=== PATIENT | female | born 1965 | race Caucasian/White ===

== ENCOUNTER 2016-10-11 09:16 | Inpatient (IN) | payer MEDICAID ==
[2016-09-22 08:20] VITALS: BMI 36.7
[2016-09-22 13:24] VITALS: BP_SYST 110; TEMP 98
[2016-10-08 16:34] VITALS: BMI 36.7
[2016-10-08 16:35] VITALS: BP_SYST 110; RESP 20; TEMP 98
[2016-10-11] VITALS (23 sets, daily range): BP systolic 87–129; RESP 16–18; TEMP 97.4–98.5
[~2016-10-11] VITALS: Ht 170.2 cm; Wt 106.3 kg
[~2016-10-11 09:16] MED LIST: CEFAZOLIN 2,000 MG in SODIUM CHLORIDE 0.9% 100 ML IV ONE; ROPIVACAINE 0.5% 139 MG, EPINEPHrine 1:1,000 0.2 MG, KETOROLAC INJ 30 MG, MORPHINE 10 MG SUBQ ONE
[2016-10-11] MEDS ORDERED: BUPIVACA/EPI 0.5% PF 10 ML EPIDURAL ONE (09:54)
[2016-10-11] MEDS ORDERED: LIDOCAINE 1% BUFFERED 1 ML SYR INTRADERM PRN (10:15)
[2016-10-11] MEDS ORDERED: MIDAZOLAM 2 MG/2 ML INJ IV ONE (10:15)
[2016-10-11] MEDS ORDERED: LACT RINGERS 1,000 ML IV SCH ×2 (10:15→13:10)
[2016-10-11] MEDS ORDERED: GLYCOPYRROLATE 0.2 MG/ML VIAL IV ONE ×2 (10:15→14:15)
[2016-10-11] MEDS ORDERED: ONDANSETRON 4 MG VIAL IV ONE (10:20)
[2016-10-11] MEDS ORDERED: SCOPOLAMINE PATCH TRANSDERM ONE (10:20)
[2016-10-11] MEDS ORDERED: MEPERIDINE 25 MG/ML IV PRN (11:45)
[2016-10-11] MEDS ORDERED: DILAUDID 1 MG/ML AMP IV PRN (11:45)
[2016-10-11] MEDS ORDERED: MORPHINE 4 MG/ML SYR IV PRN (11:45)
[2016-10-11] MEDS ORDERED: MORPHINE 2 MG/ML SYR IV PRN ×2 (11:45→13:10)
[2016-10-11] MEDS ORDERED: ONDANSETRON 4 MG VIAL IV PRN ×2 (11:45→13:10)
[2016-10-11] MEDS ORDERED: OXYCODONE 5 MG TAB PO PRN (11:45)
[2016-10-11] MEDS ORDERED: ZOLPIDEM 5 MG TAB PO PRN (13:10)
[2016-10-11] MEDS ORDERED: MAG HYDROX 30 ML UDC PO PRN (13:10)
[2016-10-11] MEDS ORDERED: DEXTROSE 50% SYRINGE 50 ML IV PRN (13:10)
[2016-10-11] MEDS ORDERED: SALINE FLUSH 10 ML FLUSH PRN (13:10)
[2016-10-11] MEDS ORDERED: ONDANSETRON 4 MG TAB PO PRN (13:10)
[2016-10-11] MEDS ORDERED: GLUCAGON 1 MG VIAL IM PRN (13:10)
[2016-10-11] MEDS ORDERED: LIDOCAINE 2% SYR 5 ML IV ONE (14:15)
[2016-10-11] MEDS ORDERED: NEOSTIGMINE 10 MG/10 ML VIAL IV ONE (14:15)
[2016-10-11] MEDS ORDERED: METOPROLOL 5 MG/5 ML VIAL IV ONE (14:15)
[2016-10-11] MEDS ORDERED: BACITRACIN 50,000 UNITS INJ IRRIG ONE (14:15)
[2016-10-11] MEDS ORDERED: PROPOFOL 20 ML VIAL IV ONE (14:15)
[2016-10-11] MEDS ORDERED: ROCURONIUM 50 MG VIAL IV ONE (14:15)
[2016-10-11] MEDS ORDERED: FENTANYL 100 MCG/2 ML AMP IV ONE (14:15)
[2016-10-11] MEDS ORDERED: DUONEB INH ONE (16:30)
[2016-10-11] MEDS: CEFAZOLIN 2,000 MG in SODIUM CHLORIDE 0.9% 100 ML IV SCH (17:41)
[2016-10-11] MEDS: OXYCODONE/APAP 7.5/325 TAB PO PRN (17:55)
[2016-10-11] MEDS ORDERED: METHYLPRED SOD SUCC 125 MG/2 ML VIAL IV ONE (19:30)
[2016-10-11] MEDS: MORPHINE 4 MG/ML SYR IV PRN ×2 (19:47→21:25)
[2016-10-11] MEDS: METFORMIN XX SCH (20:00)
[2016-10-11] MEDS: [UNRECOGNIZED DRUG - OTHER] XX SCH (20:00)
[2016-10-11] MEDS: SALINE FLUSH 10 ML FLUSH SCH (20:00)
[2016-10-11] MEDS: LINAGLIPTIN XX SCH (20:00)
[2016-10-11] MEDS: NEB-ALBUTEROL 2.5 MG/3 ML INH PRN ×2 (20:21→22:22)
[2016-10-11] MEDS: SENNA 8.6 MG TAB PO SCH (21:00)
[2016-10-11] MEDS: DOCUSATE SOD 100 MG CAP PO SCH (21:00)
[2016-10-11] MEDS: VENLAFAXINE XR 150 MG CAP PO SCH (21:25)
[2016-10-11] MEDS: PANTOPRAZOLE 40 MG TAB PO SCH (21:25)
[2016-10-12] VITALS (8 sets, daily range): BP systolic 88–126; RESP 16–20; TEMP 97.4–98.7; Ht 170.2 cm; Wt 106.3 kg
[2016-10-12] MEDS: CEFAZOLIN 2,000 MG in SODIUM CHLORIDE 0.9% 100 ML IV SCH ×3 (00:20→11:54)
[2016-10-12] MEDS: MORPHINE 4 MG/ML SYR IV PRN ×4 (00:21→06:57)
[2016-10-12] MEDS: OXYCODONE/APAP 7.5/325 TAB PO PRN ×4 (00:55→21:01)
[2016-10-12] MEDS: GUAIFEN/DM 10 ML UDC PO PRN ×2 (00:59→16:08)
[2016-10-12] MEDS: NEB-ALBUTEROL 2.5 MG/3 ML INH PRN ×7 (03:31→22:40)
[2016-10-12] MEDS: FONDAPARINUX 2.5 MG SYR SUBQ SCH (05:51)
[2016-10-12] MEDS: SODIUM CHLORIDE 0.9% FLUSH BAG 500 ML IV SCH ×2 (05:52→22:51)
[2016-10-12] MEDS: KETOROLAC 30 MG/ML VIAL IV PRN (06:58)
[2016-10-12] MEDS: [UNRECOGNIZED DRUG - OTHER] XX SCH (08:00)
[2016-10-12] MEDS: SALINE FLUSH 10 ML FLUSH SCH ×2 (08:00→20:54)
[2016-10-12] MEDS: METFORMIN XX SCH (08:00)
[2016-10-12] MEDS: LINAGLIPTIN XX SCH (08:00)
[2016-10-12] MEDS: DOCUSATE SOD 100 MG CAP PO SCH ×2 (08:03→20:54)
[2016-10-12] MEDS: MULTIVITS/MINERALS (THERAGRAN M) TAB PO SCH (08:03)
[2016-10-12] MEDS: SENNA 8.6 MG TAB PO SCH ×2 (08:03→20:54)
[2016-10-12] MEDS: POLYETHYLENE GLYCOL 17 GM PACKET PO SCH (08:04)
[2016-10-12] MEDS: VENLAFAXINE HCL 75 MG TAB PO SCH (08:04)
[2016-10-12] MEDS: MAG HYDROX 30 ML UDC PO SCH (08:04)
[2016-10-12] MEDS ORDERED: *PINK BRACELET XX ONE (10:10)
[2016-10-12] MEDS ORDERED: REMOVE TRANSDERMAL PATCH TOPICAL ONE (11:25)
[2016-10-12] MEDS ORDERED: FLEET ENEMA 132 ML BTL RECTAL PRN (15:50)
[2016-10-12] MEDS ORDERED: BISACODYL 10 MG SUPP RECTAL PRN (15:50)
[2016-10-12] MEDS: *HOME MEDS IN MED CART XX SCH (20:00)
[2016-10-12] MEDS: PANTOPRAZOLE 40 MG TAB PO SCH (20:54)
[2016-10-12] MEDS: VENLAFAXINE XR 150 MG CAP PO SCH (20:54)
[2016-10-13] MEDS: KETOROLAC 30 MG/ML VIAL IV PRN (00:02)
[2016-10-13] MEDS: OXYCODONE/APAP 7.5/325 TAB PO PRN ×3 (02:40→11:08)
[2016-10-13 03:14] VITALS: BP_SYST 131; RESP 20; TEMP 98.1
[2016-10-13 05:07] VITALS: BP_SYST 147; TEMP 97.8
[2016-10-13 05:08] VITALS: RESP 20
[2016-10-13] MEDS: FONDAPARINUX 2.5 MG SYR SUBQ SCH (06:34)
[2016-10-13] MEDS: NEB-ALBUTEROL 2.5 MG/3 ML INH PRN ×2 (06:51→10:20)
[2016-10-13 07:24] VITALS: BP_SYST 151; RESP 18; TEMP 98.1
[2016-10-13] MEDS: SALINE FLUSH 10 ML FLUSH SCH (07:47)
[2016-10-13] MEDS: VENLAFAXINE HCL 75 MG TAB PO SCH (07:48)
[2016-10-13] MEDS: MULTIVITS/MINERALS (THERAGRAN M) TAB PO SCH (07:48)
[2016-10-13] MEDS: *HOME MEDS IN MED CART XX SCH (07:54)
[2016-10-13] MEDS: POLYETHYLENE GLYCOL 17 GM PACKET PO SCH (07:54)
[2016-10-13] MEDS: DOCUSATE SOD 100 MG CAP PO SCH (07:54)
[2016-10-13] MEDS: MAG HYDROX 30 ML UDC PO SCH (07:54)
[2016-10-13] MEDS: SENNA 8.6 MG TAB PO SCH (07:55)
[2016-10-13 11:26] VITALS: BP_SYST 159; RESP 18; TEMP 98.7
[2016-10-13 11:41] VITALS: BP_SYST 159; RESP 18; TEMP 98.7
[2016-10-14] MEDS ORDERED: REMOVE SCOPALAMINE PATCH XX ONE (10:20)
== END 2016-10-13 12:36 | disposition home health service (06) | DRG 470 ==
LOC: ENRESERVTM → ENRESERVDT → ENPENDDIS 09:16 → SDS 09:16 → 2NO 14:20
PROVIDERS: ADMIT Internal Medicine; ATTEND Internal Medicine
PROC: 0SRD0J9 Replacement of Left Knee Joint with Synthetic Substitute, Cemented, Open Approach (ICD-10-PCS; principal; 2016-10-11 11:12)
DX: M17.12 Unilateral primary osteoarthritis, left knee (principal); E11.8 Type 2 diabetes mellitus with unspecified complications; R06.2 Wheezing; K21.9 Gastro-esophageal reflux disease without esophagitis; Z83.3 Family history of diabetes mellitus; Z82.61 Family history of arthritis
CPT/HCPCS: 80053; 82947; 83880; 85025; 86850; 86900; 86901; 94640; 94762; 94799